=== PATIENT | female | born 1945 | race Caucasian/White ===

== ENCOUNTER 2021-10-30 08:50 | Outpatient (CLI) | payer OTHER | END 2021-10-30 23:59 | disposition home or self-care (01) | LOC: CARD DIAG 08:50 | PROVIDERS: ATTEND Internal Medicine | DX: I08.1 Rheumatic disorders of both mitral and tricuspid valves (principal); I48.91 Unspecified atrial fibrillation | CPT/HCPCS: 93306 ==